=== PATIENT | male | born 1960 | race Caucasian/White ===

== ENCOUNTER → 2023-04-30 | Outpatient (CLI) | payer OTHER ==
[~2023-04-30] MED LIST: BUPR100T13 PO; CYCL-309 PO; GABA-531 PO; HYDROCO; LEVO50 PO; MORP15TA70 PO; NAPR-1023 PO; SIMV-46 PO; [UNRECOGNIZED DRUG - OTHER]
== END | disposition home or self-care (01) ==
LOC: RAH 08:45
PROVIDERS: ATTEND Family Medicine
DX: M47.26 Other spondylosis with radiculopathy, lumbar region (principal); M48.07 Spinal stenosis, lumbosacral region
CPT/HCPCS: 72148